=== PATIENT | female | born 1955 | race African-American/Black ===

== ENCOUNTER 2021-11-16 19:26 | Emergency (ER) | payer MEDICARE, SELFPAY ==
[~2021-11-16] VITALS: Ht 170.2 cm; Wt 93.6 kg
[2021-11-16] MEDS ORDERED: AMOX875T2 PO (19:33)
[2021-11-16] MEDS ORDERED: IBUPROFEN 600MG TAB PO ONE (23:40)
[2021-11-17 01:35] VITALS: BP 175/91
== END 2021-11-17 01:37 | disposition home or self-care (01) ==
LOC: M ED 19:26
DX: R20.2 Paresthesia of skin (principal); W01.0XXA Fall on same level from slipping, tripping and stumbling without subsequent striking against object, initial encounter; Y92.9 Unspecified place or not applicable; Y93.9 Activity, unspecified; Y99.9 Unspecified external cause status

== ENCOUNTER → 2021-12-29 | Outpatient (CLI) | payer OTHER ==
[~2021-12-29] MED LIST: AMOX875T2 PO
== END ==
LOC: M WHC 08:33
PROVIDERS: ATTEND Nurse Practitioner Family
DX: Z12.31 Encounter for screening mammogram for malignant neoplasm of breast (principal); Z13.820 Encounter for screening for osteoporosis

== ENCOUNTER → 2022-02-22 | Outpatient (REF) | payer OTHER ==
[2022-02-22 16:46] LABS: BASO % 0.9 % (0.0-1.0); EOS # 0.3 10^3/uL (0.0-0.5); EOS % 7.4 % (0.0-3.0); HEMATOCRIT 44.1 % (36.0-47.0); HEMOGLOBIN 14.3 g/dl (12.0-15.5); LYMPH # 1.1 10^3/uL (1.5-5.0); LYMPH % 33.7 % (24.0-44.0); MEAN CORPUSCULAR HEMOGLOBIN 29.4 pg (27.0-33.0); MEAN CORPUSCULAR HGB CONC 32.4 g/dl (32.0-36.5); MEAN CORPUSCULAR VOLUME 90.6 fl (80.0-96.0); MONO # 0.3 10^3/uL (0.0-0.8); MONO % 8.3 % (2.0-8.0); NEUTROPHILS # 1.7 10^3/uL (1.5-8.5); NEUTROPHILS % 49.4 % (36.0-66.0); PLATELET COUNT, AUTOMATED 190 10^3/uL (150-450); RED BLOOD COUNT 4.87 10^6/uL (4.00-5.40); WHITE BLOOD COUNT 3.4 10^3/uL (4.0-10.0)
[2022-02-22 17:02] LABS: PERCENT SATURATION 37.6 % (13.2-45.0)
== END ==
LOC: M LAB REF 16:05
PROVIDERS: ATTEND Nurse Practitioner Family
DX: R53.83 Other fatigue (principal)

== ENCOUNTER → 2022-04-05 | Outpatient (REF) | payer OTHER ==
[2022-04-05 15:04] LABS: BASO % 1.1 % (0.0-1.0); EOS # 0.3 10^3/uL (0.0-0.5); EOS % 7.6 % (0.0-3.0); HEMATOCRIT 44.8 % (36.0-47.0); LYMPH # 1.8 10^3/uL (1.5-5.0); LYMPH % 50.3 % (24.0-44.0); MEAN CORPUSCULAR HEMOGLOBIN 30.1 pg (27.0-33.0); MEAN CORPUSCULAR HGB CONC 33.5 g/dl (32.0-36.5); MONO # 0.3 10^3/uL (0.0-0.8); MONO % 9.3 % (2.0-8.0); NEUTROPHILS # 1.1 10^3/uL (1.5-8.5); NEUTROPHILS % 31.4 % (36.0-66.0); PLATELET COUNT, AUTOMATED 203 10^3/uL (150-450); RED BLOOD COUNT 4.98 10^6/uL (4.00-5.40); WHITE BLOOD COUNT 3.6 10^3/uL (4.0-10.0)
== END ==
LOC: M LAB REF 12:30
PROVIDERS: ATTEND Nurse Practitioner Family
DX: D72.819 Decreased white blood cell count, unspecified (principal)

== ENCOUNTER → 2022-04-20 | Outpatient (REF) | payer OTHER ==
[2022-04-20 13:41] LABS: BASO % 0.8 % (0.0-1.0); EOS # 0.3 10^3/uL (0.0-0.5); EOS % 7.8 % (0.0-3.0); HEMOGLOBIN 14.3 g/dl (12.0-15.5); LYMPH # 1.7 10^3/uL (1.5-5.0); LYMPH % 44.2 % (24.0-44.0); MEAN CORPUSCULAR HEMOGLOBIN 29.5 pg (27.0-33.0); MEAN CORPUSCULAR HGB CONC 32.5 g/dl (32.0-36.5); MEAN CORPUSCULAR VOLUME 90.7 fl (80.0-96.0); MONO # 0.4 10^3/uL (0.0-0.8); MONO % 9.4 % (2.0-8.0); NEUTROPHILS # 1.4 10^3/uL (1.5-8.5); NEUTROPHILS % 37.3 % (36.0-66.0); PLATELET COUNT, AUTOMATED 197 10^3/uL (150-450); RED BLOOD COUNT 4.85 10^6/uL (4.00-5.40); WHITE BLOOD COUNT 3.7 10^3/uL (4.0-10.0)
== END ==
LOC: M LAB REF 11:30
PROVIDERS: ATTEND Nurse Practitioner Family
DX: D72.819 Decreased white blood cell count, unspecified (principal)

== ENCOUNTER → 2022-04-21 | Outpatient (CLI) | payer OTHER | LOC: M RAD 10:33 | PROVIDERS: ATTEND Nurse Practitioner Family | DX: E04.9 Nontoxic goiter, unspecified (principal); R19.00 Intra-abdominal and pelvic swelling, mass and lump, unspecified site ==

== ENCOUNTER → 2022-09-20 | Outpatient (CLI) | payer MEDICARE, OTHER ==
[~2022-09-20] MED LIST changes: +OXYB5TAB10
== END ==
LOC: M EKG 10:11
PROVIDERS: ATTEND Nurse Practitioner
DX: D72.819 Decreased white blood cell count, unspecified (principal)

== ENCOUNTER → 2022-10-07 | Outpatient (CLI) | payer OTHER | LOC: M SLEEP 20:00 | PROVIDERS: ATTEND Nurse Practitioner Adult Health | DX: G47.30 Sleep apnea, unspecified (principal) ==

== ENCOUNTER → 2023-06-13 | Outpatient (REF) | payer MEDICARE, OTHER ==
[~2023-06-13] MED LIST changes: -OXYB5TAB10; +OXYB5TAB14
[2023-06-13 18:18] LABS: BASO % 0.7 % (0.0-1.0); EOS # 0.2 10^3/uL (0.0-0.5); EOS % 4.4 % (0.0-3.0); HEMATOCRIT 44.3 % (36.0-47.0); HEMOGLOBIN 14.6 g/dl (12.0-15.5); LYMPH # 1.7 10^3/uL (1.5-5.0); LYMPH % 42.6 % (24.0-44.0); MEAN CORPUSCULAR HEMOGLOBIN 29.8 pg (27.0-33.0); MEAN CORPUSCULAR VOLUME 90.4 fl (80.0-96.0); MONO # 0.4 10^3/uL (0.0-0.8); MONO % 9.6 % (2.0-8.0); NEUTROPHILS # 1.7 10^3/uL (1.5-8.5); NEUTROPHILS % 42.5 % (36.0-66.0); PLATELET COUNT, AUTOMATED 188 10^3/uL (150-450); WHITE BLOOD COUNT 4.1 10^3/uL (4.0-10.0)
[2023-06-13 18:42] LABS: BLOOD UREA NITROGEN 13 MG/DL (9-23); CALCIUM LEVEL 10.8 MG/DL (8.3-10.6); CARBON DIOXIDE LEVEL 27 MMOL/L (20-31); CHLORIDE LEVEL 110 MMOL/L (98-107); CHOLESTEROL LEVEL 232 MG/DL (<200); CHOLESTEROL RISK RATIO 4.25 (<5); CREATININE FOR GFR 0.73 MG/DL (0.55-1.30); GLOMERULAR FILTRATION RATE > 60.0 (>45); GLUCOSE, FASTING 85 MG/DL (74-106); HDL CHOLESTEROL 54.5 MG/DL (>40); LDL CHOLESTEROL 154.1 MG/DL (<100); NON-HDL-C 177.5 MG/DL; POTASSIUM SERUM 4.9 MMOL/L (3.5-5.1); SODIUM LEVEL 142 MMOL/L (136-145); TRIGLYCERIDES LEVEL 117 MG/DL (<150)
[2023-06-13 18:43] LABS: THYROID STIMULATING HORMONE 1.064 uIU/ML (0.55-4.78); TOTAL 25(OH) VITAMIN D 21.2 NG/ML (20.0-100.0)
[2023-06-13 19:04] LABS: HEMOGLOBIN A1c 5.5 % (4.0-6.0)
== END ==
LOC: M LAB REF 16:45
PROVIDERS: ATTEND Nurse Practitioner Family
DX: R03.0 Elevated blood-pressure reading, without diagnosis of hypertension (principal); R93.89 Abnormal findings on diagnostic imaging of other specified body structures; Z68.33 Body mass index [BMI] 33.0-33.9, adult; E78.5 Hyperlipidemia, unspecified; E55.9 Vitamin D deficiency, unspecified; Z86.39 Personal history of other endocrine, nutritional and metabolic disease

== ENCOUNTER → 2024-01-05 | Outpatient (CLI) | payer OTHER ==
[~2024-01-05] MED LIST changes: +BACT800T5 PO
== END ==
LOC: M RAD 13:50
PROVIDERS: ATTEND Nurse Practitioner Family
DX: E04.2 Nontoxic multinodular goiter (principal); R93.89 Abnormal findings on diagnostic imaging of other specified body structures

== ENCOUNTER → 2024-03-19 | Outpatient (CLI) | payer MEDICARE, OTHER ==
[~2024-03-19] MED LIST changes: +AMLO1TAB24 PO; +LIDOCAINE 1% MDV 20ML VIAL As Ordered ONE
[2024-03-19 09:00] VITALS: BP 145/91; TEMP 96.8; O2SAT 99
== END ==
LOC: M IRPRO 08:49
PROVIDERS: ATTEND Surgery
DX: D48.7 Neoplasm of uncertain behavior of other specified sites (principal)

== ENCOUNTER → 2024-03-26 | Outpatient (REF) | payer MEDICARE, OTHER ==
[~2024-03-26] MED LIST changes: -LIDOCAINE 1% MDV 20ML VIAL As Ordered ONE
[2024-03-26 12:26] LABS: BLOOD UREA NITROGEN 10 MG/DL (9-23); CALCIUM LEVEL 12.3 MG/DL (8.3-10.6); CARBON DIOXIDE LEVEL 28 MMOL/L (20-31); CHLORIDE LEVEL 111 MMOL/L (98-107); CHOLESTEROL LEVEL 227 MG/DL (<200); CHOLESTEROL RISK RATIO 5.03 (<5); CREATININE FOR GFR 0.81 MG/DL (0.55-1.30); GLOMERULAR FILTRATION RATE > 60.0 (>45); GLUCOSE, FASTING 99 MG/DL (74-106); HDL CHOLESTEROL 45.1 MG/DL (>40); LDL CHOLESTEROL 151.9 MG/DL (<100); NON-HDL-C 181.9 MG/DL; POTASSIUM SERUM 3.7 MMOL/L (3.5-5.1); SODIUM LEVEL 144 MMOL/L (136-145); TRIGLYCERIDES LEVEL 150 MG/DL (<150)
== END ==
LOC: M LAB REF 11:51
PROVIDERS: ATTEND Nurse Practitioner Family
DX: Z13.6 Encounter for screening for cardiovascular disorders (principal); E83.52 Hypercalcemia

== ENCOUNTER → 2024-04-04 | Outpatient (CLI) | payer MEDICARE ==
[2024-04-04 16:24] LABS: CALCIUM LEVEL 12.2 MG/DL (8.3-10.6)
[2024-04-04 16:27] LABS: PTH INTACT 286.6 PG/ML (18.5-88.0)
== END ==
LOC: M LAB 15:20
PROVIDERS: ATTEND Nurse Practitioner Family
DX: E83.52 Hypercalcemia (principal)

== ENCOUNTER → 2024-05-09 | Outpatient (REF) | payer MEDICARE ==
[2024-05-09 18:35] LABS: BASO % 0.6 % (0.0-1.0); EOS # 0.1 10^3/uL (0.0-0.5); EOS % 2.9 % (0.0-3.0); HEMATOCRIT 42.5 % (36.0-47.0); HEMOGLOBIN 13.7 g/dl (12.0-15.5); LYMPH # 1.2 10^3/uL (1.5-5.0); LYMPH % 39.1 % (24.0-44.0); MEAN CORPUSCULAR HEMOGLOBIN 29.1 pg (27.0-33.0); MEAN CORPUSCULAR HGB CONC 32.2 g/dl (32.0-36.5); MEAN CORPUSCULAR VOLUME 90.2 fl (80.0-96.0); MONO # 0.3 10^3/uL (0.0-0.8); MONO % 8.3 % (2.0-8.0); NEUTROPHILS # 1.5 10^3/uL (1.5-8.5); NEUTROPHILS % 48.8 % (36.0-66.0); PLATELET COUNT, AUTOMATED 183 10^3/uL (150-450); RED BLOOD COUNT 4.71 10^6/uL (4.00-5.40); WHITE BLOOD COUNT 3.1 10^3/uL (4.0-10.0)
[2024-05-09 18:58] LABS: URIC ACID 6.9 MG/DL (3.1-7.8)
[2024-05-09 19:00] LABS: LDH LACTATE DEHYDROGENASE 141 U/L (120-246)
[2024-05-09 19:01] LABS: ALBUMIN 3.8 G/DL (3.2-5.2); ALKALINE PHOSPHATASE 152 U/L (35-104); ALT/SGPT 15 U/L (7.0-40); AST/SGOT 13 U/L (<34); BILIRUBIN,TOTAL 0.7 MG/DL (0.3-1.2); BLOOD UREA NITROGEN 16 MG/DL (9-23); CALCIUM LEVEL 11.9 MG/DL (8.3-10.6); CARBON DIOXIDE LEVEL 28 MMOL/L (20-31); CHLORIDE LEVEL 111 MMOL/L (98-107); GLOMERULAR FILTRATION RATE > 60.0 (>45); GLUCOSE, FASTING 81 MG/DL (74-106); POTASSIUM SERUM 4.7 MMOL/L (3.5-5.1); SODIUM LEVEL 143 MMOL/L (136-145); TOTAL PROTEIN 6.9 G/DL (5.7-8.2)
[2024-05-09 19:03] LABS: THYROID STIMULATING HORMONE 0.867 uIU/ML (0.55-4.78)
== END ==
LOC: M LAB REF 16:38
PROVIDERS: ATTEND Nurse Practitioner Family
DX: R22.40 Localized swelling, mass and lump, unspecified lower limb (principal); E83.52 Hypercalcemia

== ENCOUNTER → 2024-05-11 | Outpatient (CLI) | payer MEDICARE | LOC: M WHC 09:45 | PROVIDERS: ATTEND Nurse Practitioner Family | DX: Z12.31 Encounter for screening mammogram for malignant neoplasm of breast (principal); Z13.820 Encounter for screening for osteoporosis; R92.323 Mammographic fibroglandular density, bilateral breasts; M85.89 Other specified disorders of bone density and structure, multiple sites ==

== ENCOUNTER 2025-03-17 12:00 | Emergency (ER) | payer MEDICARE ==
[~2025-03-17] VITALS: Ht 167.6 cm; Wt 80.7 kg
[2025-03-17 14:49] VITALS: BP 134/75; TEMP 96.1; O2SAT 97
[2025-03-17] MEDS: NAPROXEN 250 MG TAB PO ONE (14:49)
[2025-03-17] MEDS: predniSONE 20 MG TAB PO ONE (14:49)
[2025-03-17] MEDS ORDERED: NAPR-1405 PO (14:49)
[2025-03-17] MEDS ORDERED: PRED10TA2 PO (14:49)
== END 2025-03-17 14:57 | disposition home or self-care (01) ==
LOC: M ED 12:00
DX: M25.552 Pain in left hip (principal); Z91.09 Other allergy status, other than to drugs and biological substances; Z79.1 Long term (current) use of non-steroidal anti-inflammatories (NSAID); Z79.899 Other long term (current) drug therapy; Z79.52 Long term (current) use of systemic steroids
CPT/HCPCS: 73502; 99283; J7512